=== PATIENT | male | born 2000 | race Caucasian/White ===

== ENCOUNTER 2019-08-15 09:52 | Emergency (ER) | payer SELFPAY ==
--- NOTE | 2019-08-15 10:29 | ED ---
Complex/Multi-Sys Presentation - HPI Summary HPI Summary: 19 year old M presenting to [facility] accompanied by female learning administrator complains of a fall that resulted in a left finger injury earlier today 08/15/2019. Patient denies head injury or syncope. No social history of smoking but some alcohol use. The patient rates the pain 5/10 in severity. Symptoms aggravated by nothing. Symptoms alleviated by nothing. Medications reviewed. Allergies noted. Home Medications Medication Instructions Recorded Confirmed Type NK [No Home Medications Reported] 08/15/19 08/15/19 History - History Of Current Complaint Chief Complaint: EDLacSutureRecheck Time Seen by Provider: 08/15/19 10:20 Hx Obtained From: Patient Onset/Duration: Sudden Onset, Still Present Timing: Constant Severity Currently: Moderate Aggravating Factor(s): nothing Alleviating Factor(s): nothing - Allergies/Home Medications Allergies/Adverse Reactions: Allergies Allergy/AdvReac Type Severity Reaction Status Date / Time No Known Allergies Allergy Verified 08/15/19 10:01 Home Medications: Home Medications Cephalexin CAP* [Keflex CAP*] 500 mg PO QID #20 cap 08/15/19 [Rx] PMH/Surg Hx/FS Hx/Imm Hx Sensory History: Denies: Hx Legally Blind EENT History: Denies: Hx Deafness Infectious Disease History: No Infectious Disease History: Denies: Traveled Outside the [place] in Last 30 Days - Family History Known Family History: Positive: Hypertension, Diabetes - Social History Alcohol Use: Occasionally Hx Substance Use: No Substance Use Type: Reports: None Review of Systems Negative: Fever Musculoskeletal: Other - laceration on 4th left finger Negative: Syncope All Other Systems Reviewed And Are Negative: Yes Physical Exam - Summary Physical Exam Summary: VITAL SIGNS: Reviewed. GENERAL: Patient is a well-developed and nourished male who is lying comfortable in the stretcher. Patient is not in any acute respiratory distress. HEAD AND FACE: No signs of trauma. No ecchymosis, hematomas or skull depressions. No sinus tenderness. EYES: PERRLA, EOMI x 2, No injected conjunctiva, no nystagmus. EARS: Hearing grossly intact. Ear canals and tympanic membranes are within normal limits. MOUTH: Oropharynx within normal limits. NECK: Supple, trachea is midline, no adenopathy, no JVD, no carotid bruit, no c- spine tenderness, neck with full ROM. CHEST: Symmetric, no tenderness at palpation. LUNGS: Clear to auscultation bilaterally. No wheezing or crackles. CVS: Regular rate and rhythm, S1 and S2 present, no murmurs or gallops appreciated. ABDOMEN: Soft, non-tender. No signs of distention. No rebound, no guarding, and no masses palpated. Bowel sounds are normal. EXTREMITIES: Laceration on dorsal aspect of left 4th finger 2.5 cm. NEURO: Alert and oriented x 3. No acute neurological deficits. Speech is normal and follows commands. SKIN: Dry and warm. Triage Information Reviewed: Yes Vital Signs On Initial Exam: Initial Vitals Temp Pulse Resp BP Pulse Ox 99.9 F 69 16 144/94 98 08/15/19 09:59 08/15/19 09:59 08/15/19 09:59 08/15/19 09:59 08/15/19 09:59 Vital Signs Reviewed: Yes Procedures - Sedation Patient Received Moderate/Deep Sedation with Procedure: No - Laceration/Wound Repair 1 Location: Other - 4th finger on left hand Anesthesia: 1.0% - lidocaine no epinephrine Length, Depth and Shape: 2.5 cm Laceration/Wound Explored: clean Suture Type: Nylon - 2-O Number of Sutures: 5 - No complications but patients declined finger split so was given whole hand splint Diagnostics - Vital Signs Vital Signs Temp Pulse Resp BP Pulse Ox 08/15/19 09:59 99.9 F 69 16 144/94 98 - Laboratory Lab Statement: Any lab studies that have been ordered have been reviewed, and results considered in the medical decision making process. - Radiology Hand X-ray Radiology Interpretation Completed By: Radiologist Summary of Radiographic Findings: IMPRESSION: FRACTURE OF THE HEAD OF THE MIDDLE PHALANX OF THE FOURTH DIGIT, WITH ARTICULAR EXTENSION, WITH PROBABLE FRACTURE OF THE BASE OF THE DISTAL PHALANX OF THE FOURTH DIGIT. has reviewed this report. Complex Multi-Symp Course/Dx Assessment/Plan: 19 year old M presenting to [facility] accompanied by female learning administrator complains of a fall that resulted in a left finger injury earlier today 08/15/2019. Patient denies head injury or syncope. No social history of smoking but some alcohol use. The patient rates the pain 5/10 in severity. Symptoms aggravated by nothing. Symptoms alleviated by nothing. Medications reviewed. Allergies noted. In the ED course the patient was placed in a drive man, IV access was obtained, IV fluids started. Past medical records reviewed. Left hand x ray IMPRESSION: FRACTURE OF THE HEAD OF THE MIDDLE PHALANX OF THE FOURTH DIGIT, WITH ARTICULAR EXTENSION,. WITH PROBABLE FRACTURE OF THE BASE OF THE DISTAL PHALANX OF THE FOURTH DIGIT. The wound was irrigated with normal saline. Digital block was performed. Approximated the edges of the wounds. Patient was given Kefzol 2 g IV and tetanus booster. Discussed the case with Dr. Moncada and he recommends for the patient to be discharged home and follow-up at his office in the next 3 days. He was given a prescription for Keflex as recommended by Dr. Moncada. Patient is hemodynamically stable alert and oriented 3. - Diagnoses Provider Diagnoses: Open fracture of finger - Physician Notifications Discussed Care Of Patient With: Armando Moncada - Agrees with management. Said to approximate laceration, put in splint, and follow up with him in 2 days. Time Discussed With Above Provider: 11:30 Instructed by Provider To: Other - Agrees with management. Said to approximate laceration, put in splint, and follow up with him in 2 days. Discharge ED - Sign-Out/Discharge Documenting (check all that apply): Patient Departure - discharge - Discharge Plan Condition: Stable Disposition: HOME Prescriptions: Cephalexin CAP* [Keflex CAP*] 500 mg PO QID #20 cap Patient Education Materials: Finger Fracture (ED), Finger Laceration (ED) Referrals: Alberto Ro MD [Primary Care Provider] - 3 Days Additional Instructions: Please return to emergency department for any new or worsening symptoms. Please follow up with your primary care physician within 1-3 days. - Billing Disposition and Condition Condition: STABLE Disposition: Home - Attestation Statements Document Initiated by Chloeibe: Yes Documenting Scribe: Sourav Parham Provider For Whom Coco is Documenting (Include Credential): Dr.Walter Elmer MD Scribe Attestation: Sourav Judd scribed for Dr.Walter Elmer MD on 08/16/19 at 0723. Scribe Documentation Reviewed: Yes Provider Attestation: The documentation as recorded by the Sourav anthony accurately reflects the service I personally performed and the decisions made by me, Dr.Walter Elmer MD Status of Scribe Document: Viewed
[2019-08-15] MEDS ORDERED: Lidocaine 1% MPF ** 5 ML VIAL ONE (11:31)
[2019-08-15] MEDS ORDERED: ceFAZolin 2 GM PREMIX in ORs 2 GM/50 ML BAG IVPB ONE (11:48)
[2019-08-15] MEDS ORDERED: Tetan/Diph/Pertus SYR(Tdap)* 0.5 ML SYR(BOOSTRIX) use SYR contains LATEX IM ONE (12:06)
[2019-08-15] MEDS: ceFAZolin 2 GM in NS PREMIX(*) 2 GM/100 ML BAG IVPB ONE ×2 (12:15→12:27)
[2019-08-15 13:51] VITALS: BP 136/76
== END 2019-08-15 13:35 | disposition home or self-care (01) ==
LOC: ED 09:52
DX: S62.655B Nondisplaced fracture of middle phalanx of left ring finger, initial encounter for open fracture (principal); W19.XXXA Unspecified fall, initial encounter; Y92.9 Unspecified place or not applicable; Z23 Encounter for immunization
CPT/HCPCS: 12001; 90471; 90715; 96360; 96365; 99283; J0690

== ENCOUNTER 2019-08-22 10:13 | Day surgery (SDC) | payer OTHER ==
--- NOTE | 2019-08-21 17:01 | HP ---
PREOPERATIVE HISTORY AND PHYSICAL: DATE OF SURGERY/ADMISSION: 08/22/19 DATE OF OFFICE VISIT/ENCOUNTER: 08/18/19 ATTENDING SURGEON: Nandini Anthony MD* (dictated by LUZ ELENA Helton). PROCEDURE: Left ring finger open reduction internal fixation middle phalanx; extensor tendon exploration, possible repair. 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 He injured his left ring finger at work on 08/15/19. He fell off of a ladder and part of the garage door open and hit the dorsal aspect of his ring finger causing a substantial injury. He was seen at [facility] and had some x-rays which showed a comminuted intraarticular fracture, which is displaced of the middle phalanx of his ring finger. Sutures were placed and he was referred to Dr. Anthony for further evaluation and treatment considerations. He is currently using Keflex, hydrocodone, and ibuprofen. After review of x-rays and evaluation of the finger, Dr. Anthony is recommending surgical intervention for best outcome and the patient has consented to proceed. PAST MEDICAL HISTORY: Unremarkable. PAST SURGICAL HISTORY: None. CURRENT MEDICATIONS: All are for his current injury: 1. [place] 5/325 one to two tabs q.4 to 6 hours p.r.n. pain. 2. Keflex 500 mg four times a day. 3. Ibuprofen 600 mg up to 3 times a day. ALLERGIES: No known drug allergies. FAMILY MEDICAL HISTORY: Noncontributory. SOCIAL HISTORY: He is employed at [employer]. He denies tobacco use and recreational drug use. He drinks alcohol on occasion. REVIEW OF SYSTEMS: Negative for general, cephalic, cardiovascular, respiratory , GI, , endocrine, integumentary, other musculoskeletal, neurologic, and hematologic symptoms. Infectious Disease: Negative for MRSA, hepatitis C, HIV. PHYSICAL EXAMINATION GENERAL: Well-developed, well-nourished 19-year-old male, in no acute distress. VITAL SIGNS: Height 6 feet tall, weight 237 pounds. Blood pressure 123/79. HEENT: Normocephalic, atraumatic. Pupils are equal, round, and reactive to light and accommodation. Extraocular movements are intact. Throat is clear. NECK: Supple. No palpable lymph nodes. PULMONARY: Lungs are clear to auscultation bilaterally. No wheezes, rales, or rhonchi. CARDIOVASCULAR: Regular rate and rhythm. S1, S2. No murmurs, rubs, or gallops. No edema. ABDOMEN: Positive bowel sounds. Soft, nontender. MUSCULOSKELETAL: On exam of the left ring finger, there is swelling along the finger. He has a laceration on the dorsal aspect which crosses the DIP joint. He has active flexion and extension of the joint but not very much, it is painful for him to move through motion. Neurovascular function is intact. On visual inspection, the finger is straight, is in good alignment. NEUROLOGICAL: Alert and oriented x3. Cranial nerves II through XII are intact. IMAGING STUDIES: X-rays, AP, lateral, and oblique, of the left ring finger show a displaced intraarticular fracture of the articular surface of the middle phalanx. There are a couple of displaced fracture fragments. IMPRESSION: Left ring finger crush injury with open fracture of the middle phalanx. PLAN: The patient is scheduled to undergo a left ring finger open reduction internal fixation of the middle phalanx; extensor tendon exploration, possible repair with Dr. Anthony on 08/22/19. He will return to the office 10 days postop for followup and suture removal. A refill of the prescription for [place] was e- scribed to the patient's pharmacy for postoperative pain management. LUZ ELENA HELTON [id number]/[facility] #: [id number] JESSICA
[~2019-08-22 10:13] MED LIST: DiMENhydriNATE IV* 50 MG/ML VIAL IV PUSH PRN; HYDROcodone/ACETAMIN 5-325 MG* 1 TAB PO PRN; Naloxone* 0.4 MG/ML 1 ML VIAL IV PRN; Ondansetron INJ* 2 MG/ML VIAL IV PRN; diPHENhydraMINE IV* 50 MG/ML 1 ml VIAL (BENADRYL) IV PRN; fentaNYL* 50 MCG/ML 2 ML VIAL (100 MCG VIAL) IV PRN
[2019-08-22] MEDS ORDERED: Famotidine IV* 10 MG/ML 2 ML (20 mg) ONE (10:21)
[2019-08-22] MEDS ORDERED: Midazolam* 1 MG/ML 2 ML VIAL (2 MG) ONE ×2 (10:49→10:58)
[2019-08-22] MEDS ORDERED: Acetaminophen TAB* 325 MG ONE (10:49)
[2019-08-22] MEDS ORDERED: fentaNYL* 50 MCG/ML 2 ML VIAL (100 MCG VIAL) ONE (10:49)
[2019-08-22] MEDS ORDERED: Dexamethasone IV* 4 MG/ML 1 ML (4 MG) ONE (10:51)
[2019-08-22] MEDS ORDERED: Propofol* 10 MG/ML 20 ML BTL ONE ×2 (10:51→10:52)
[2019-08-22] MEDS ORDERED: Lidocaine 2% PF * 5 ML VIAL ONE (10:51)
[2019-08-22] MEDS ORDERED: Ketorolac INJ* 30 MG/ML 1 ML VIAL ONE (10:51)
[2019-08-22 12:45] VITALS: BP 128/89
--- NOTE | 2019-08-22 22:30 | OP ---
DATE OF OPERATION: 08/22/19 [facility] DATE OF : [birth year] SURGEON: Nandini Anthony MD MOUNTER AUTOMATIC: LUZ ELENA Helton ANESTHESIA: Local MAC. PRE-OP DIAGNOSIS: Left ring finger laceration with open fracture dislocation of the DIP joint. POST-OP DIAGNOSIS: Left ring finger laceration with open fracture dislocation of the DIP joint with extensor tendon complete laceration. OPERATIVE PROCEDURE: Left ring finger exploration, open reduction and internal fixation of the middle phalanx, and extensor tendon repair. ESTIMATED BLOOD LOSS: Zero. TOURNIQUET TIME: Approximately 30 minutes. INDICATIONS FOR PROCEDURE: Hema is a 19-year-old male who injured his left ring finger at work. He was working on a garage door and the coil let loose, and he suffered a significant laceration across the dorsal aspect of his ring finger at the DIP joint. X-ray shows intraarticular fracture of the middle phalanx, very comminuted, displaced. The patient presents for exploration and repair. DESCRIPTION OF PROCEDURE: The patient was brought to the operating room, was given a sedation anesthetic and a digital block with 10 cc of 1% plain lidocaine. The skin of his left hand and forearm was prepped and draped in the usual sterile fashion. The hand and forearm were exsanguinated and the tourniquet elevated to 250 mmHg. The sutures were removed and the wound was explored. The extensor tendon was completely lacerated and there was a significant amount of tendon missing. Half of the articular surface at the DIP joint was gone. There were fracture fragments on the volar aspect of the joint and these were removed. The flexor tendon was intact. The wound was copiously irrigated with saline. We then repaired the condylar fracture fragment with two 0.035 K-wires. Position of these K wires was checked on C-arm in the AP and lateral views and found to be satisfactory. The extensor tendon was then repaired with 4-0 nylon suture, but again there was a gap in the tendon. The skin edges were reapproximated with 4-0 nylon suture. The wound was dressed with Xeroform, 4x4, Webril, and a clamshell AlumaFoam splint. The patient tolerated the procedure well and was brought to the recovery room in good condition. [id number]/[facility] #: [id number] [facility]
== END 2019-08-22 12:25 | disposition home or self-care (01) ==
LOC: OREAST 10:13
PROVIDERS: ATTEND Orthopaedic Surgery
DX: S62.625B Displaced fracture of middle phalanx of left ring finger, initial encounter for open fracture (principal); S66.325A Laceration of extensor muscle, fascia and tendon of left ring finger at wrist and hand level, initial encounter; W11.XXXA Fall on and from ladder, initial encounter; Y93.89 Activity, other specified; Y92.89 Other specified places as the place of occurrence of the external cause
CPT/HCPCS: 76000; A9270-GY; C1776; J1100; J1885; J2250; J2704; J3010